=== PATIENT | male | born 1995 | race Caucasian/White ===

== ENCOUNTER 2018-03-04 04:22 | Emergency (ER) | payer SELFPAY ==
[2018-03-04] MEDS ORDERED: LIDOCAINE 1%/EPINEPHRINE INJ 20 ML VIAL INJ ONE (04:30)
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
[2018-03-04 05:44] VITALS: BP 128/76
== END 2018-03-04 05:30 | disposition home or self-care (01) ==
LOC: ER 04:22
PROC: 0HQEXZZ Repair Left Lower Arm Skin, External Approach (ICD-10-PCS; principal; 2018-03-04)
DX: S51.812A Laceration without foreign body of left forearm, initial encounter (principal); X99.1XXA Assault by knife, initial encounter; Y92.410 Unspecified street and highway as the place of occurrence of the external cause
CPT/HCPCS: 99283; 12002; J3490